=== PATIENT | female | born 1955 | race Caucasian/White ===

== ENCOUNTER 2016-06-23 07:07 | Emergency (ER) | payer BC ==
[~2016-06-23] VITALS: Ht 162.6 cm; Wt 75.1 kg
[~2016-06-23 07:07] MED LIST: ACET-1311 PO; ASPCH81X PO; BND25 PO; CLC100X PO; CLOP1TAB5 PO; EZET10TA63 PO; GLC500 PO; METF-382 PO; METO25TA56 PO; NTRGSL/4 PO; NTRSLP4 SL; OXYC-643 PO; PANT1TAB48 PO; SIMV40TA2 PO; ZOLP5TAB6 PO; [UNRECOGNIZED DRUG - OTHER] PO
[2016-06-23 07:12] VITALS: TEMP 37; Ht 162.6 cm; Wt 75.1 kg
[2016-06-23] MEDS ORDERED: METF-384 PO (07:27)
[2016-06-23] MEDS ORDERED: ASPIRIN 81 MG CHEW PO STA (07:27)
[2016-06-23] MEDS ORDERED: MAGN400T6 PO (07:42)
[2016-06-23] MEDS ORDERED: CALC500C3 PO (07:42)
[2016-06-23] MEDS ORDERED: ERGO500037 PO (07:42)
[2016-06-23] MEDS ORDERED: ATOR-24 PO (07:42)
[2016-06-23] MEDS ORDERED: ASPCH81X PO (07:43)
[2016-06-23] MEDS ORDERED: CLOP1TAB15 PO (07:43)
[2016-06-23 07:46] LABS: BASO % 0.5 %; BASO ABS # 0.04 K/uL (0-0.2); COMPLETE YES; EOS % 3.3 %; HEMATOCRIT 42.9 % (37-47); IG% 0.4 %; LYMPH % 32.1 %; LYMPH ABS # 2.45 K/uL (1.2-3.4); MEAN CELL VOLUME 86.7 fL (80-100); MEAN CORPUSCULAR HEMOGLOBIN 28.9 pg (25-34); MEAN CORPUSCULAR HGB CONC 33.3 g/dl (32-36); MEAN PLATELET VOLUME 9.4 fL (7.4-10.4); MONO % 6.5 %; NEUT % 57.2 %; PLATELET COUNT 402 K/uL (130-400); RED BLOOD COUNT 4.95 M/uL (4.2-5.4); WHITE BLOOD COUNT 7.64 K/uL (4.8-10.8)
[2016-06-23 07:52] VITALS: O2SAT 99
--- NOTE | 2016-06-23 07:53 | DIAGNOSTIC IMAGING REPORT ---
CHEST ONE VIEW PORTABLE CLINICAL HISTORY: Chest pain. COMPARISON STUDY: Chest radiograph July 04, 2016. FINDINGS: Lung volumes are normal. There is no consolidation. There is no evidence of pulmonary edema. Cardiomediastinal silhouette is stable. There is slight elevation of the left hemidiaphragm. IMPRESSION: 1. No acute findings. 2. Slight elevation of the left hemidiaphragm. Electronically signed by: Burak Porter M.D. 06/23/2016 7:52 AM Dictated Date/Time: 06/23/2016 7:52 AM
[2016-06-23 07:54] LABS: BUN/CREATININE RATIO 14.6 (10-20); CALCIUM 9.4 mg/dl (8.5-10.1); CREATININE 1.6 mg/dl (0.60-1.20); MAGNESIUM 1.8 mg/dl (1.8-2.4); POTASSIUM 3.6 mmol/L (3.5-5.1)
[2016-06-23 07:58] LABS: ALB/GLOB RATIO 1.1 (0.9-2); CKMB/CK RATIO 2.4 (0-3.0)
[2016-06-23 08:01] LABS: INR 0.9 (0.9-1.1); PROTHROMBIN TIME (PATIENT) 9.6 SECONDS (9.0-12.0)
[2016-06-23] MEDS ORDERED: SODIUM CHLORIDE 0.9% 1000ML 500 ML IV STA (09:43)
[2016-06-23] MEDS ORDERED: SODIUM CHLORIDE 0.9% 1000ML 1,000 ML IV STA (09:43)
--- NOTE | 2016-06-23 10:52 | EMERGENCY ROOM VISIT NOTE ---
History First contact with patient: 07:13 Chief Complaint: CARDIAC ASSESSMENT Stated Complaint: POSSIBLE HEART Nursing Triage Summary: pt to the ED with c/o epigastric/substernal chest pain that went to her back that started last night and it went into her right arm and shoulder. pt has hx of 2 stents and she took 1 nitro last night with no change in pain History of Present Illness Patient is a 61-year-old white female with past medical history significant for coronary artery disease status post [place] and PTCA with stenting 2, hypertension, dyslipidemia, diabetes and carotid artery stenosis who presents emergency department for evaluation of epigastric pain and back pain. Patient reports that her symptoms started yesterday with lower sternal pain that radiated through to her back. She states it was steady and constant for about 12 hours. At its worst she would've rated it a 9/10. She noted some associated belching. She states that burping helped with her discomfort. She also noticed some tightness in her neck. She monitored her heart rate and blood pressure at home and does report that her blood pressure was slightly elevated in the 150s over 110s and her heart rate was in the 90s. She did take 2 nitroglycerin last evening without change in her symptoms. She also tried chewing Tums. She states the pain did alleviate slightly last evening and she was able to go to bed. She slept through the night and felt fine when she woke up this morning. 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 She states that she broke out in a sweat and felt slightly like she was going to pass out. She again is complaining of some soreness in the top of her right shoulder and in her left scapular region. She denies any palpitations or indigestion. She was slightly nauseous yesterday. Bowel movements have been normal. She took her regular medications this morning. At the present time she is chest pain-free. Her energy trading analyst is Dr. Palacios. Review of Systems Review of systems as per HPI. All other systems reviewed were negative. 10 systems reviewed. Past Medical/Surgical History Medical Problems: (1) Carotid Artery Occlusion W O Cerebral Infarction (2) Chr Ischemic Hrt Dis Nec (3) Coronary Atherosclerosis Of [place] Coronary Vessel (4) Diab Hortensia Wo Compl, Type Ii Or Unspec Type, Not Uncntrld (5) Dysmetabolic Syndrome X (6) Hyperlipidemia Nec/Nos (7) Hypertension Nos (8) Old Myocardial Infarct (9) Vitamin D Deficiency, Unspecified Surgical Problems: (1) Fracture Acetabulum-Clos (2) Percutaneous Translum Coron Angioplasty Status Electronic medical records are reviewed and summarized as above/below. See Problem List. Social History Smoking Status: Current Some Day Smoker Drug Use: none Marital Status: Housing Status: lives alone Occupation Status: employed Current/Historical Medications Scheduled Aspirin (Aspirin Chewable), 81 MG PO DAILY Atorvastatin (Lipitor), 40 MG PO HS Calcium Carbonate (Tums), 500 MG PO UD Clopidogrel (Plavix), 75 MG PO DAILY Ergocalciferol (Vitamin D 74640 Unit), 50,000 UNIT PO WK Magnesium Oxide (Mag-Ox), 400 MG PO BID Metformin Hcl (Glucophage), 1,000 MG PO BID Nitroglycerin (Nitrostat), 0.4 MG PO UD Allergies Coded Allergies: Epinephrine (Verified Allergy, Severe, "PT FLATLINED"?, 06/23/16) Tetanus Toxoid (Unverified Allergy, Severe, SEVERE BURNING, 06/23/16) Fexofenadine (Verified Allergy, Unknown, 06/23/16) Influenza Vaccines (Verified Allergy, Unknown, `, 12/21/12) Meperidine (Verified Allergy, Unknown, 06/23/16) Physical Exam Vital Signs Date Time Temp Pulse Resp B/P Pulse Ox O2 Delivery O2 Flow Rate FiO2 06/23/16 11:01 62 18 140/89 96 06/23/16 10:54 59 06/23/16 09:49 56 18 134/77 97 06/23/16 08:17 61 18 134/74 100 06/23/16 07:52 99 06/23/16 07:22 72 06/23/16 07:12 37.0 69 18 132/87 97 Room Air Physical Exam CONSTITUTIONAL: Patient is a pleasant, well-appearing 61-year-old white female who is awake and alert and in no acute distress. EYES: Pupils equal, round, reactive to light and accommodation. EOMs intact without nystagmus. Sclera are anicteric. ENT: Tympanic membranes intact, with normal landmarks. External canals are clear. Oral and nasopharynx are clear. Mucous membranes are moist, no lesions , tongue and gums appear normal. NECK: No bruits auscultated. Supple without lymphadenopathy. No thyromegaly. No meningeal signs. Full active range of motion without discomfort. CARDIOVASCULAR: Regular rate and rhythm, with normal S1 and S2, no murmur or gallop or rub is heard. No carotid bruits auscultated. No JVD. Peripheral pulses easy to palpable. RESPIRATORY: Breath sounds equal and clear to auscultation without wheezes, rales, or rhonchi heard. Full and equal chest expansion without accessory muscle use or retractions. GI: Bowel sounds are present. Abdomen is soft, nontender, nondistended. No organomegaly. No pulsatile masses. No guarding or rebound. MUSCULOSKELETAL: Full range of motion of extremities x 4 with good strength. No cyanosis, edema, joint tenderness or swelling. No deformity. She does have some INTEGUMENTARY: No lesions or rash, normal skin turgor. NEUROLOGICAL: Alert, oriented, and cooperative. Cranial nerves, sensation and strength grossly intact. Pupils round, equal, and react to light, EOMs are full. LYMPH: No lymphadenopathy. Medical Decision & Procedures ER Provider Diagnostic Interpretation: CHEST ONE VIEW PORTABLE CLINICAL HISTORY: Chest pain. COMPARISON STUDY: Chest radiograph July 04, 2016. FINDINGS: Lung volumes are normal. There is no consolidation. There is no evidence of pulmonary edema. Cardiomediastinal silhouette is stable. There is slight elevation of the left hemidiaphragm. IMPRESSION: 1. No acute findings. 2. Slight elevation of the left hemidiaphragm. Laboratory Results 06/23/16 07:20 Red Blood Count 4.95, Mean Corpuscular Volume 86.7, Mean Corpuscular Hemoglobin 28.9, Mean Corpuscular Hemoglobin Concent 33.3, Mean Platelet Volume 9.4, Neutrophils (%) (Auto) 57.2, Lymphocytes (%) (Auto) 32.1, Monocytes (%) (Auto) 6.5, Eosinophils (%) (Auto) 3.3, Basophils (%) (Auto) 0.5, Neutrophils # (Auto) 4.37, Lymphocytes # (Auto) 2.45, Monocytes # (Auto) 0.50, Eosinophils # (Auto) 0.25, Basophils # (Auto) 0.04 06/23/16 07:20 Test 06/23/16 07:20 06/23/16 07:27 06/23/16 09:15 White Blood Count 7.64 K/uL (4.8-10.8) Red Blood Count 4.95 M/uL (4.2-5.4) Hemoglobin 14.3 g/dL (12.0-16.0) Hematocrit 42.9 % (37-47) Mean Corpuscular Volume 86.7 fL (80-100) Mean Corpuscular Hemoglobin 28.9 pg (25-34) Mean Corpuscular Hemoglobin Concent 33.3 g/dl (32-36) Platelet Count 402 K/uL (130-400) Mean Platelet Volume 9.4 fL (7.4-10.4) Neutrophils (%) (Auto) 57.2 % Lymphocytes (%) (Auto) 32.1 % Monocytes (%) (Auto) 6.5 % Eosinophils (%) (Auto) 3.3 % Basophils (%) (Auto) 0.5 % Neutrophils # (Auto) 4.37 K/uL (1.4-6.5) Lymphocytes # (Auto) 2.45 K/uL (1.2-3.4) Monocytes # (Auto) 0.50 K/uL (0.11-0.59) Eosinophils # (Auto) 0.25 K/uL (0-0.5) Basophils # (Auto) 0.04 K/uL (0-0.2) RDW Standard Deviation 40.4 fL (36.4-46.3) RDW Coefficient of Variation 12.7 % (11.5-14.5) Immature Granulocyte % (Auto) 0.4 % Immature Granulocyte # (Auto) 0.03 K/uL (0.00-0.02) Prothrombin Time 9.6 SECONDS (9.0-12.0) Prothromb Time International Ratio 0.9 (0.9-1.1) Activated Partial Thromboplast Time 26.8 SECONDS (21.0-31.0) Partial Thromboplastin Ratio 1.0 Anion Gap 9.0 mmol/L (3-11) Est Creatinine Clear Calc Drug Dose 36.7 ml/min Estimated GFR () 39.9 Estimated GFR (Non- 34.4 BUN/Creatinine Ratio 14.6 (10-20) Calcium Level 9.4 mg/dl (8.5-10.1) Magnesium Level 1.8 mg/dl (1.8-2.4) Total Bilirubin 1.0 mg/dl (0.2-1) Aspartate Amino Transf (AST/SGOT) 15 U/L (15-37) Alanine Aminotransferase (ALT/SGPT) 17 U/L (12-78) Alkaline Phosphatase 129 U/L (45-117) Total Creatine Kinase 114 U/L (26-192) Creatine Kinase MB 2.7 ng/ml (0.5-3.6) Total Protein 7.6 gm/dl (6.4-8.2) Albumin 3.9 gm/dl (3.4-5.0) Globulin 3.7 gm/dl (2.5-4.0) Albumin/Globulin Ratio 1.1 (0.9-2) Lipase 293 U/L (73-393) Creatine Kinase MB Ratio (0-3.0) Bedside Troponin I 0.000 ng/ml (0-0.045) Medications Administered Medications (Trade) Dose Ordered Sig/Sarah Route Start Time Stop Time Status Last Admin Dose Admin Aspirin 243 mg 243 mg NOW STAT PO 06/23/16 07:27 06/23/16 07:34 DC 06/23/16 07:49 243 MG Sodium Chloride 500 ml @ 999 mls/hr Q31M STAT IV 06/23/16 09:43 06/23/16 10:13 DC 06/23/16 09:48 999 MLS/HR Sodium Chloride (Nss 1000ml) 1,000 ml @ 200 mls/hr Q5H STAT IV 06/23/16 09:43 06/23/16 11:31 DC 06/23/16 09:49 200 MLS/HR ECG Indication: chest pain, back/shoulder pain Rate (beats per minute): 76 Rhythm: other Findings: PVC, no acute ischemic change, other (old infarct) ED Course The patient was seen and assessed as above. Old records are reviewed. History and presentation were reviewed with attending physician, and ED workup was agreed upon. Patient was also independently evaluated by Dr. Rhoades. IV lock was initiated. Patient was hydrated with normal saline solution. Laboratory studies were collected including CBC with differential, coags, CMP, lipase, cardiac enzymes. She was given aspirin 323 mg orally. Chest x-ray was obtained and was unremarkable. EKG did not demonstrate acute ischemic changes. Laboratory studies did not no leukocytosis, anemia, electrolyte or liver function abnormalities. Renal function is slightly elevated, BUN 23 and creatinine 1.6, which is chronic and appears stable for her. Her cardiac markers are negative 1, and 0 and 90 minute troponins are unchanged with symptoms greater than 12 hours. Lipase is not indicative of acute pancreatitis. All laboratory and diagnostic imaging studies were reviewed with attending physician. I did review the patient with Dr. Weaver who was personal lines account executive for [facility] Card[facility]. He felt given the nature of her symptoms and negative ED workup, she could be evaluated in a timely manner in the outpatient clinic for further cardiac testing. This was discussed with the patient and she was in agreement. Certainly she is well versed on the signs and symptoms for which she should return to the emergency department immediately and these were reviewed with her. The patient otherwise was hemodynamically stable and pain-free while in the emergency department awaiting the results of her workup. She was discharged home in good condition and was pain-free at that time. Differential diagnosis includes acute myocardial infarction, acute coronary syndrome, myocarditis, pericarditis, pericardial effusions /tamponade, esophageal perforation, pulmonary embolism, pneumonia, pneumothorax, cardiomyopathy, congestive heart failure, anemia , COPD/asthma exacerbation, musculoskeletal, anxiety, costochondritis, pancreatitis, gastritis, esophagitis , GERD, acute cholecystitis, cholelithiasis, biliary colic, ascending cholangitis, among others.. Medical Decision See ED course. Impression Primary Impression: Midsternal chest pain Departure Information Referrals Ana Norton DO (PCP) Patient Instructions [facility] Additional Instructions Acetaminophen(Tylenol) may be used for fever or pain. Use 1000mg every six hours as needed. Avoid using more than 3000mg in a 24 hour period. Rest and drink plenty of fluids as tolerated. Continue current medications. Avoid strenuous activities and anything that worsens your pain. Resume normal activities once your symptoms resolve. Return to the ER immediately for worsening or persistent chest pain, abdominal pain, vomiting, fevers, chest pains, difficulty breathing, worsening of your condition, or as needed. Follow up with your energy trading analyst as scheduled for a recheck of your current condition.
--- NOTE | 2016-06-23 10:55 | EMERGENCY ROOM VISIT NOTE ---
ED Visit Note First contact with patient: 07:13 The patient was seen and examined with Rosmery Rodriguez PA-C. I agree with the history, physical and findings. Please see the note for disposition and details.
[2016-06-23 11:01] VITALS: BP 140/89; PULSE 62; O2SAT 96
== END 2016-06-23 11:02 | disposition home or self-care (01) ==
LOC: C.EDB 07:08
DX: R07.89 Other chest pain (principal); M54.9 Dorsalgia, unspecified; I25.10 Atherosclerotic heart disease of native coronary artery without angina pectoris; I10 Essential (primary) hypertension; E78.5 Hyperlipidemia, unspecified; E11.9 Type 2 diabetes mellitus without complications; E88.81 Metabolic syndrome and other insulin resistance; E55.9 Vitamin D deficiency, unspecified; F17.200 Nicotine dependence, unspecified, uncomplicated; Z95.5 Presence of coronary angioplasty implant and graft; Z79.82 Long term (current) use of aspirin

== ENCOUNTER 2025-01-20 15:32 | Inpatient (IN) ==
--- NOTE | 2025-01-20 16:05 | Emergency Department Note ---
Impression & Plan Generalized weakness, COVID-19 virus infection, Fatigue, Elevated troponin I level, Hypoxia ED Provider Note NAME: ALEX GUPTA AGE: 69 SEX: F : 1955 ARRIVES VIA: Walk-In INFORMANT: Patient, ED PROVIDER(S): Tobias Myrick DO CHIEF COMPLAINT: Strokelike symptoms HPI: The patient is a 69-year-old female who presented to the emergency department for strokelike symptoms. She has a history of a MA in 2020. She also has a history of a stroke. She does use tobacco products. She does take Plavix. The patient states that she has been compliant with her outpatient medications. Her last time that her family saw her completely normal was yesterday. They all had dinner yesterday evening. The patient works still at a local hotel. Apparently she was there today and doing her normal work. She seemed to be "off" according to some of her coworkers. Her daughter states that she fell asleep in her car. She states that she did very fatigued and weak. She complains of pain between her shoulder blades that goes into her neck. She states that she has had some difficulty word finding as well. She denies having any unilateral weakness. She denies having any nausea or vomiting. She thought she might be dehydrated so she is drinking more water than usual yesterday. She denies having any lower extremity swelling or pain. ROS: See above HPI for pertinent positives & negatives. A total of 10 systems reviewed and were otherwise negative. PAST MEDICAL HISTORY: See Below PAST SURGICAL HISTORY: See Below FAMILY HISTORY: See Below SOCIAL HISTORY: See Below HOME MEDICATIONS: See Below ALLERGIES: See Below VITALS: See Below PHYSICAL EXAMINATION: GENERAL: Patient is awake alert in no acute distress patient is resting comfortably and showing no signs of anxiety EYES: The conjunctivae are clear. The pupils are round and reactive. EARS, NOSE, MOUTH AND THROAT: The nose is without any evidence of any deformity. NECK: The neck is nontender and supple. RESPIRATORY: Scattered rhonchi was noted throughout. There is no tachypnea or conversational dyspnea. CARDIOVASCULAR: Regular rate and rhythm noted there no murmurs rubs or gallops normal S1 normal S2. GASTROINTESTINAL: The abdomen is soft. Abdomen is nontender. PELVIS: The Pelvis is stable. No tenderness to palpation is noted. BACK: No midline tenderness or or step-off noted range of motion in flexion extension as well as rotation no signs of muscle spasm noted MUSCULOSKELETAL/EXTREMITIES: There is no evidence of gross deformity full range of motion is noted in the hips and shoulders. SKIN: There is no obvious evidence of any rash. There are no petechiae, pallor or cyanosis noted. Pulses are symmetric in both wrist. NEUROLOGIC: Patient is awake alert and oriented x3. Speech was clear. There is no facial droop. The patient is able to hold each leg off the bed for greater than 5 seconds. MEDICAL DECISION MAKING: The patient is a 69-year-old female who presented to the emergency department with her family. They were concerned that this could represent strokelike symptoms. The patient was not acting herself today. She was overly tired. She fell asleep at 1 point in her car and seemed to be confused at times to her family. This is unlike the patient so they brought her to the emergency department for further evaluation. She was not made a stroke alert because of the last known well being yesterday. The patient also did not have any obvious focal neurologic deficits on physical exam. The patient also complained of back pain. There was some concern that this could represent stroke versus some sort of cardiac equivalent. Given the patient's complaints further laboratory and radiographic studies were obtained. Ultimately patient was found to have a positive COVID test. She also was found to have a slight elevation in troponin. Given these findings I did discuss her condition with the on-call [facility] hospitalist. They have agreed to evaluate the patient in the emergency department for further management and disposition. Triage Nursing notes reviewed. Prior medical records reviewed Vital Signs: reviewed and remarkable for no significant abnormalities Differential diagnosis: Infection, dehydration, metabolic abnormality, hypo/hyperglycemia, electrolyte disturbance, anemia, hypoxia, cardiac sources, intracerebral event, toxicologic, neurologic, as well as other pathologies. ER treatment provided: See below Diagnostics interpreted by me: ECG: EKG was obtained in the emergency department. My interpretation is sinus bradycardia 59 bpm. There were PACs noted. Nonspecific ST and T wave abnormalities were noted. This was compared to a tracing from 2020. The previous tracing does show extensive ST depression with T wave inversions. This was the time the patient presented for cardiac ischemia and acute coronary syndrome. Likely today's tracing reveals evolution of those changes. Cardiac Monitoring: An order was placed for continuous cardiac monitoring. The monitor shows a rate of 62 bpm with sinus rhythm. Laboratory studies: As stated above and show below. Imaging studies: See below. Radiographic imaging was reviewed by myself Consultation(s): I discussed this case with Dr. Jane who is on-call for the [facility] hospitalist group. Past Med/Surg History Problem List (Updated 01/20/25 @ 22:54 by Tobias Myrick DO) Hypoxia (Acute) Elevated troponin I level (Acute) Fatigue (Acute) COVID-19 virus infection (Acute) Generalized weakness (Acute) Eustachian tube obstruction Pressure sensation in both ears Sensorineural hearing loss (SNHL) of both ears Positive BLANCA (antinuclear antibody) Proteinuria Acute kidney injury CKD (chronic kidney disease) stage 4, GFR 15-29 ml/min Fracture of fifth metacarpal bone of right hand (11/03/23) From a fall-saw orthopedics Fracture of fourth metacarpal bone of right hand (11/03/23) From a fall-saw orthopedics Fracture of third metacarpal bone of right hand (11/03/23) From a fall-saw orthopedics Right hand fracture (11/03/23) From a fall-saw orthopedics Dysmetabolic syndrome X Xerosis of skin Vitamin D deficiency, unspecified Ptosis of eyelid Prediabetes Postmenopausal disorder Old myocardial infarct Left carotid bruit Insomnia Hypomagnesemia Hypertension Hypercholesterolemia Generalized osteoarthritis of multiple sites Former smoker Arteriosclerosis of coronary artery Arteriosclerosis of carotid artery Medical History History of disorder of carotid artery Occlusion resulting in stroke History of hip fracture (~12/20/12) right acetabulum History of stroke due to occlusion or stenosis of lt. middle cerebral artery Retinal hemorrhage, left eye Presence of stent in artery Surgical History S/P carotid endarterectomy History of repair of rotator cuff Family History Father Lung cancer Mother Ovarian cancer Grandmother Myocardial infarction Heart disease Denies family history of Prostate cancer Breast cancer Colorectal cancer Social History Smoking Status: Current every day smoker Tobacco Type: Cigarettes Age Started Using Tobacco: 12; Age Quit Using Tobacco: 50; packs per day: 1; Cigarettes Per Day: 20; Second Hand Exposure: Yes; Do You Dip or Chew Tobacco: No; Hx Alcohol Use: Yes Alcohol type: wine Alcohol Intake Frequency: Monthly or Less Hx Substance Use: No Preferred Language: Serbian Communication Ability: Effective Visual Impairment: No Limitations Hearing Ability: Normal Cook Ship Required: No marital status: Current Living Situation: Alone current occupational status: employed and retired current occupation: [employer] How many Children do You have: 3 Feels Safe at Home: Yes Childhood Exposure to Second-Hand Smoke: Yes Diet: regular caffeine: Yes during the past year weight has: remained stable Dental Care, Regularly: No Physical Activity Frequency: Daily Seatbelt Use: always Sunscreen Use: No Assistive Devices: Glasses Allergies Allergies Allergy/AdvReac Type Severity Reaction Status Date / Time epinephrine Allergy Severe Anaphylaxis Verified 11/21/24 14:04 tetanus toxoid, adsorbed Allergy Severe Rash Verified 11/21/24 14:04 fexofenadine Allergy Unknown Unknown Verified 11/21/24 14:04 Influenza Virus Vaccines Allergy Unknown Unknown Verified 11/21/24 14:04 doxycycline AdvReac Severe RASH Verified 11/21/24 14:04 hydralazine AdvReac Severe Patients Verified 11/21/24 14:04 pulse dropped to 30 meperidine AdvReac Intermediate Bradycardia Verified 11/21/24 14:04 cephalexin [From Keflex] AdvReac Unverified 11/21/24 14:04 Home Meds Home Medications Medication Instructions Recorded Confirmed aspirin 81 mg tablet,delayed 81 mg PO DAILY 05/22/20 11/21/24 release Previous Rx's Medication Instructions Recorded benzonatate 200 mg capsule 200 mg PO TID PRN cough #30 caps 07/23/21 inhalational spacing device #1 ea 07/31/21 albuterol sulfate 90 mcg/actuation 2 puff inhalation .COMPLEX PRN 09/03/24 aerosol inhaler shortness of breath or wheezing #8.5 grams clobetasol 0.05 % topical cream 1 applic topical BID PRN rash #60 09/03/24 grams clopidogrel 75 mg tablet 75 mg PO DAILY #90 tabs 09/03/24 losartan 100 mg tablet 100 mg PO DAILY #90 tabs 09/03/24 metoprolol tartrate 25 mg tablet 12.5 mg (1/2 x 25 mg) PO BID #90 09/03/24 tabs nitroglycerin 0.4 mg sublingual 0.4 mg sublingual .COMPLEX PRN 09/03/24 tablet chest pain #30 tabs rosuvastatin 20 mg tablet 20 mg PO DAILY #90 tabs 09/03/24 empagliflozin 10 mg tablet 10 mg PO DAILY #30 tabs 11/21/24 (Jardiance) Results & Data (ED) Vital Signs Vital Signs - 24 hr 01/20/25 15:38 01/20/25 15:55 01/20/25 17:00 Temperature 36.7 C Temperature Source Temporal Artery Scan Pulse Rate 65 58 L Pulse Rate [Apical] 58 L Respiratory Rate 18 16 Respiratory Effort / Characteristics Non-Labored Spontaneous Respiratory Depth Normal Blood Pressure 140/62 Blood Pressure [Right Arm] 159/75 H Blood Pressure Mean 88 Blood Pressure Mean [Right Arm] 103 Pulse Oximetry 98 92 Oxygen Delivery Method Room Air Oxygen Flow Rate Sepsis Recent Fever Within 48 Hours No Sepsis New/Unexplained Change in Mental Status No Sepsis Action Taken by Nursing No Action Required 01/20/25 17:33 01/20/25 19:00 01/20/25 20:38 Temperature Temperature Source Pulse Rate 63 Pulse Rate [Apical] 65 64 Respiratory Rate 16 16 Respiratory Effort / Characteristics Respiratory Depth Blood Pressure Blood Pressure [Right Arm] 170/80 H 163/87 H Blood Pressure Mean Blood Pressure Mean [Right Arm] 110 112 Pulse Oximetry 95 93 Oxygen Delivery Method Room Air Room Air Oxygen Flow Rate Sepsis Recent Fever Within 48 Hours Sepsis New/Unexplained Change in Mental Status Sepsis Action Taken by Nursing 01/20/25 21:00 Temperature Temperature Source Pulse Rate Pulse Rate [Apical] 62 Respiratory Rate 16 Respiratory Effort / Characteristics Respiratory Depth Blood Pressure Blood Pressure [Right Arm] 170/83 H Blood Pressure Mean Blood Pressure Mean [Right Arm] 112 Pulse Oximetry 96 Oxygen Delivery Method Nasal Cannula Oxygen Flow Rate 2 Sepsis Recent Fever Within 48 Hours Sepsis New/Unexplained Change in Mental Status Sepsis Action Taken by [facility] Medications Current Medication List: was personally reviewed by me Laboratory Data Attestation: I reviewed the patient's lab results. 01/20/25 16:07 01/20/25 16:07 Lab Results 01/20/25 01/20/25 01/20/25 Range/Units 15:53 16:07 16:10 WBC 4.54 L (4.8-10.8) K/ul RBC 3.90 L (4.20-5.40) M/uL Hgb 11.1 L (12.0-16.0) g/dl Hct 35.2 L (37.0-47.0) % MCV 90.3 (80.0-100.0) fL MCH 28.5 (25.0-34.0) pg MCHC 31.5 L (32.0-36.0) g/dL RDW Std Deviation 44.0 (36.4-46.3) fL RDW Coeff of Yoselin 13.3 (11.5-14.5) % Plt Count 221 (130-400) K/uL MPV 9.4 (9.4-12.4) fL Immature Gran % (Auto) 0.2 % Neut % (Auto) 68.5 % Lymph % (Auto) 14.5 % [place] % (Auto) 16.1 % Eos % (Auto) 0.0 % Baso % (Auto) 0.7 % Neut # (Auto) 3.11 (1.40-6.50) K/uL Lymph # (Auto) 0.66 L (1.20-3.40) K/uL [place] # (Auto) 0.73 H (0.11-0.59) K/uL Eos # (Auto) 0.00 (0.00-0.50) K/uL Baso # (Auto) 0.03 (0.00-0.20) K/uL Immature Gran # (Auto) 0.01 (0.01-0.20) K/uL PT 10.8 (9.0-12.0) Seconds INR 1.0 (0.9-1.1) APTT 28 (21-31) Seconds PTT Ratio 1.0 Sodium 138 (136-145) mmol/L Potassium 4.5 (3.5-5.1) mmol/L Chloride 107 (98-107) mmol/L Carbon Dioxide 24 (21-32) mmol/L Anion Gap 7 (3-11) BUN 22 (6-23) mg/dl Creatinine 2.04 H (0.6-1.2) mg/dl Est Cr Clr Drug Dosing 27.1 ml/min eGFR 25.92 BUN/Creatinine Ratio 10.8 (10-20) Glucose 90 (70-99(Fasting)) mg/dl POC Glucose 102 H (70-99) mg/dl Calcium 8.9 (8.6-10.3) mg/dl Magnesium 1.9 (1.7-2.4) mg/dl Total Bilirubin 1.2 H (0.2-1.0) mg/dl AST 23 (13-39) U/L ALT 16 (7-52) U/L Alkaline Phosphatase 83 (34-104) U/L Troponin I High Sens 16.9 H (0-14) pg/ml Total Protein 6.2 (6.0-8.3) gm/dl Albumin 3.7 (3.4-5.0) gm/dl Globulin 2.5 (2.5-4.0) gm/dl Albumin/Globulin Ratio 1.5 (0.9-2) SARS-CoV-2 (PCR) POSITIVE A (Negative) Influenza Type A (PCR) Negative (Neg) Influenza Type B (PCR) Negative (Neg) RSV (RT-PCR) Negative (Neg) Administered Medications Discontinued Medications Sodium Chloride (Nss) 1,000 mls @ 999 mls/hr IV .Q1H1M ONE Stop: 01/20/25 17:48 Last Infusion: 01/20/25 19:29 Dose: Infused Documented By: Admin: 01/20/25 17:04 Dose: 999 mls/hr Documented By: KVNG Ioversol (Optiray 320 125ml) 115 ml IV ONCE ONE Stop: 01/20/25 19:19 Last Admin: 01/20/25 19:19 Dose: 115 ml Documented By: DARLYN Imaging Data Attestation: I personally reviewed and interpreted this imaging study as follows: My Impression: CT of the brain was obtained in the emergency department. My interpretation is no intracranial hemorrhage or mass effect, final report below. Radiologist's Impression: Chest CTA 01/20/25 15:54 CT pulmonary angiogram with IV contrast History: Chest pain COMPARISON: None TECHNIQUE: CT angiography of the chest was performed without IV contrast followed by IV contrast, including 3D post processing CTA image reconstruction. Dose reduction techniques were achieved by using automatic exposure control and/or adjustment of mA and/or kV according to patient size and/or use of iterative reconstruction technique. FINDINGS: Diagnostic quality: Adequate There is no evidence for pulmonary embolism. No aortic dissection or aneurysm. The heart is not enlarged. Heavy coronary calcification. There is no pericardial effusion. There are no abnormally enlarged hilar or mediastinal lymph nodes. The central tracheobronchial tree is clear. The lungs are clear. There is no pleural effusion. Limited visualized upper abdomen. No destructive osseous changes are seen. IMPRESSION: Normal CTA of the chest. No aortic aneurysm or dissection. No evidence for pulmonary embolism. Electronically signed by Geovany Leroy 01-20-2025 7:[address] 01/20/25 15:54 CT head without contrast History: Numbness Comparison: None Technique: Using multidetector thin collimation helical acquisition technique, axial, coronal and sagittal CT images from the skull base to the vertex were obtained without intravenous contrast. Dose reduction techniques were achieved by using automatic exposure control and/or adjustment of mA and/or kV according to patient size and/or use of iterative reconstruction technique. Findings: No intracranial hemorrhage, mass-effect, or midline shift. The ventricles are proportionate to the cerebral sulci. The varghese to white matter differentiation of the cerebral hemispheres is preserved. The basal cisterns are patent. Chronic lacunar infarct in the left richards radiata. The visualized paranasal sinuses are clear. Mastoid air cells are clear. Impression: No acute intracranial pathology. Electronically signed by Geovany Leroy 01-20-2025 7:59 PM Head CTA 01/20/25 15:[address] without contrast CT angiogram of the neck CT angiogram of the brain with contrast Provided History: Neuro deficit Comparison: None Technique: HEAD CT: Using multidetector thin collimation helical acquisition technique, axial, coronal and sagittal CT images from the skull base to the vertex were obtained without intravenous contrast. HEAD and NECK CTA: During rapid bolus intravenous injection of nonionic contrast material, axial images were obtained using thin collimation multidetector helical technique from the base of the neck through the of vertex of the head. This CT angiogram data was reconstructed at thin intervals with mild overlap. 3D reconstructions were obtained. The axial source images, multiplanar reformations, 3D reconstructions in both maximum intensity projection display and volume rendered models were reviewed. Dose reduction techniques were achieved by using automatic exposure control and/or adjustment of mA and/or kV according to patient size and/or use of iterative reconstruction technique. Findings: Head CT: There is no intracranial hemorrhage, mass effect, or midline shift. Varghese/white matter differentiation in both cerebral hemispheres is preserved. Ventricles are proportionate to the cerebral sulci. Small chronic lacunar infarct in the left richards radiata. Head CTA demonstrates no aneurysm or stenosis of the major intracranial arteries. Neck CTA demonstrates no stenosis of the major cervical arteries. A right ICA stent appears patent. The origins of the great vessels from the aortic arch are patent. No mass is noted within the visualized portions of the cervical soft tissues or lung apices. Impression: 1. Head CTA demonstrates no aneurysm or stenosis of the major intracranial arteries, 2. Neck CTA demonstrates no stenosis of the major cervical arteries. Patent right ICA stent. 3. No intracranial hemorrhage on the noncontrast head CT. Electronically signed by Geovany Leroy 01-20-2025 7:53 PM Neck CTA 01/20/25 15:[address] without contrast CT angiogram of the neck CT angiogram of the brain with contrast Provided History: Neuro deficit Comparison: None Technique: HEAD CT: Using multidetector thin collimation helical acquisition technique, axial, coronal and sagittal CT images from the skull base to the vertex were obtained without intravenous contrast. HEAD and NECK CTA: During rapid bolus intravenous injection of nonionic contrast material, axial images were obtained using thin collimation multidetector helical technique from the base of the neck through the of vertex of the head. This CT angiogram data was reconstructed at thin intervals with mild overlap. 3D reconstructions were obtained. The axial source images, multiplanar reformations, 3D reconstructions in both maximum intensity projection display and volume rendered models were reviewed. Dose reduction techniques were achieved by using automatic exposure control and/or adjustment of mA and/or kV according to patient size and/or use of iterative reconstruction technique. Findings: Head CT: There is no intracranial hemorrhage, mass effect, or midline shift. Varghese/white matter differentiation in both cerebral hemispheres is preserved. Ventricles are proportionate to the cerebral sulci. Small chronic lacunar infarct in the left richards radiata. Head CTA demonstrates no aneurysm or stenosis of the major intracranial arteries. Neck CTA demonstrates no stenosis of the major cervical arteries. A right ICA stent appears patent. The origins of the great vessels from the aortic arch are patent. No mass is noted within the visualized portions of the cervical soft tissues or lung apices. Impression: 1. Head CTA demonstrates no aneurysm or stenosis of the major intracranial arteries, 2. Neck CTA demonstrates no stenosis of the major cervical arteries. Patent right ICA stent. 3. No intracranial hemorrhage on the noncontrast head CT. Electronically signed by Geovany Leroy 01-20-2025 7:53 PM Discharge Plan Visit Data Chief Complaint: TIA Symptoms Stated Complaint: STROKE HEART PROBLEMS ED Provider: Tobias Myrick Discharge Problem: Generalized weakness, COVID-19 virus infection, Fatigue, Elevated troponin I level, Hypoxia Patient Disposition: Being Evaluated by Hospitalist Condition: Fair Forms Stand Alone Forms: [facility] [employer] Prescriptions Prescriptions: No Action benzonatate 200 mg capsule 200 mg PO TID PRN (Reason: cough) Qty: 30 1RF (DME) inhalational spacing device Spacer See Rx Instructions .ROUTE .MEDSUPPLY Qty: 1 0RF Rx Instructions: As directed albuterol sulfate 90 mcg/actuation HFA aerosol inhaler 2 puff inhalation .COMPLEX PRN (Reason: shortness of breath or wheezing) Qty: 8.5 3RF Rx Instructions: 2 puff inhalation q4-6 hrs PRN; clobetasol 0.05 % cream 1 applic topical BID PRN (Reason: rash) Qty: 60 0RF clopidogrel 75 mg tablet 75 mg PO DAILY Qty: 90 3RF Rx Instructions: Take 1 tablet by mouth once daily losartan 100 mg tablet 100 mg PO DAILY Qty: 90 3RF metoprolol tartrate 25 mg tablet 12.5 mg PO BID Qty: 90 3RF Rx Instructions: TAKE 1/2 (ONE-HALF) TABLET BY MOUTH TWICE DAILY nitroglycerin 0.4 mg tablet, sublingual 0.4 mg SL .COMPLEX PRN (Reason: chest pain) Qty: 30 5RF Rx Instructions: 0.4 mg SL Q5M FOR UP TO 3 DOSES PRN; rosuvastatin 20 mg tablet 20 mg PO DAILY Qty: 90 3RF Jardiance 10 mg tablet 10 mg PO DAILY Qty: 30 2RF aspirin 81 mg Tablet,Delayed Release (Dr/Ec) 81 mg PO DAILY Referrals Referrals: Ambreen Lira MD [Primary Care Provider] -
[2025-01-20 16:27] LABS: Hematocrit (blood only) 35.2 % (37.0-47.0); Hemoglobin 11.1 g/dl (12.0-16.0); Immature Granulocytes # (auto) 0.01 K/uL (0.01-0.20); Immature Granulocytes % (auto) 0.2 %; Mean Corpuscular Hemoglobin 28.5 pg (25.0-34.0); Mean Corpuscular Volume 90.3 fL (80.0-100.0); Platelet Count 221 K/uL (130-400); RDW Standard Deviation 44.0 fL (36.4-46.3); Red Blood Count 3.90 M/uL (4.20-5.40); White Blood Count 4.54 K/ul (4.8-10.8)
[2025-01-20 16:46] LABS: Alanine Aminotransferase 16.0 U/L (7-52); Albumin Globulin Ratio 1.5 (0.9-2); Albumin Level 3.7 gm/dl (3.4-5.0); Alkaline Phosphatase 83.0 U/L (34-104); Anion Gap 7.0 (3-11); Bilirubin,Total 1.2 mg/dl (0.2-1.0); Blood Urea Nitrogen 22.0 mg/dl (6-23); Calcium 8.9 mg/dl (8.6-10.3); Carbon Dioxide 24.0 mmol/L (21-32); Chloride 107.0 mmol/L (98-107); Creatinine Clr Calc Pharmacy 27.1 ml/min; Globulin 2.5 gm/dl (2.5-4.0); Glucose 90.0 mg/dl (70-99(Fasting)); Magnesium 1.9 mg/dl (1.7-2.4); Potassium 4.5 mmol/L (3.5-5.1); Sodium 138.0 mmol/L (136-145); Total Protein 6.2 gm/dl (6.0-8.3)
[2025-01-20 17:00] LABS: INR 1.0 (0.9-1.1); Partial Thromboplastin Time 28 Seconds (21-31); Prothrombin Time 10.8 Seconds (9.0-12.0)
[2025-01-20] MEDS: SODIUM CHLORIDE 0.9% 1,000 ML IV ONE (17:04)
[2025-01-20 17:06] LABS: Influenza A virus by PCR Negative (Neg); Influenza B virus by PCR Negative (Neg); SARS CoV2 RNA(COVID-19) Ceph POSITIVE (Negative)
[2025-01-20] MEDS: OPTIRAY 320 125ml IV ONE (19:19)
--- NOTE | 2025-01-20 19:54 | CT Scan Report ---
Head CT without contrast CT angiogram of the neck CT angiogram of the brain with contrast Provided History: Neuro deficit Comparison: None Technique: HEAD CT: Using multidetector thin collimation helical acquisition technique, axial, coronal and sagittal CT images from the skull base to the vertex were obtained without intravenous contrast. HEAD and NECK CTA: During rapid bolus intravenous injection of nonionic contrast material, axial images were obtained using thin collimation multidetector helical technique from the base of the neck through the of vertex of the head. This CT angiogram data was reconstructed at thin intervals with mild overlap. 3D reconstructions were obtained. The axial source images, multiplanar reformations, 3D reconstructions in both maximum intensity projection display and volume rendered models were reviewed. Dose reduction techniques were achieved by using automatic exposure control and/or adjustment of mA and/or kV according to patient size and/or use of iterative reconstruction technique. Findings: Head CT: There is no intracranial hemorrhage, mass effect, or midline shift. Varghese/white matter differentiation in both cerebral hemispheres is preserved. Ventricles are proportionate to the cerebral sulci. Small chronic lacunar infarct in the left richards radiata. Head CTA demonstrates no aneurysm or stenosis of the major intracranial arteries. Neck CTA demonstrates no stenosis of the major cervical arteries. A right ICA stent appears patent. The origins of the great vessels from the aortic arch are patent. No mass is noted within the visualized portions of the cervical soft tissues or lung apices. Impression: 1. Head CTA demonstrates no aneurysm or stenosis of the major intracranial arteries, 2. Neck CTA demonstrates no stenosis of the major cervical arteries. Patent right ICA stent. 3. No intracranial hemorrhage on the noncontrast head CT. Electronically signed by Geovany Leroy 01-20-2025 7:53 PM
--- NOTE | 2025-01-20 19:54 | CT Scan Report ---
CT pulmonary angiogram with IV contrast History: Chest pain COMPARISON: None TECHNIQUE: CT angiography of the chest was performed without IV contrast followed by IV contrast, including 3D post processing CTA image reconstruction. Dose reduction techniques were achieved by using automatic exposure control and/or adjustment of mA and/or kV according to patient size and/or use of iterative reconstruction technique. FINDINGS: Diagnostic quality: Adequate There is no evidence for pulmonary embolism. No aortic dissection or aneurysm. The heart is not enlarged. Heavy coronary calcification. There is no pericardial effusion. There are no abnormally enlarged hilar or mediastinal lymph nodes. The central tracheobronchial tree is clear. The lungs are clear. There is no pleural effusion. Limited visualized upper abdomen. No destructive osseous changes are seen. IMPRESSION: Normal CTA of the chest. No aortic aneurysm or dissection. No evidence for pulmonary embolism. Electronically signed by Geovany Leroy 01-20-2025 7:53 PM
--- NOTE | 2025-01-20 20:00 | CT Scan Report ---
CT head without contrast History: Numbness Comparison: None Technique: Using multidetector thin collimation helical acquisition technique, axial, coronal and sagittal CT images from the skull base to the vertex were obtained without intravenous contrast. Dose reduction techniques were achieved by using automatic exposure control and/or adjustment of mA and/or kV according to patient size and/or use of iterative reconstruction technique. Findings: No intracranial hemorrhage, mass-effect, or midline shift. The ventricles are proportionate to the cerebral sulci. The brownlee to white matter differentiation of the cerebral hemispheres is preserved. The basal cisterns are patent. Chronic lacunar infarct in the left richards radiata. The visualized paranasal sinuses are clear. Mastoid air cells are clear. Impression: No acute intracranial pathology. Electronically signed by Geovany Leroy 01-20-2025 7:59 PM
[2025-01-20] MEDS ORDERED: ALBUT/IPRATROP 3MG/0.5MG NEB 3 ML VIAL NEB PRN (22:03)
--- NOTE | 2025-01-20 22:08 | History & Physical Report ---
Date of Service January 20, 2025 Assessment & Plan (1) COVID-19 virus infection: (2) Fatigue: (3) Generalized weakness: (4) Myalgia: Plan The patient is a 69-year-old female with past medical history including eustachian tube dysfunction, SNHL bilaterally, positive BLANCA, CKD stage IV, multiple fractures of metacarpals on right hand 11-03-2023, dysmetabolic syndrome X, vitamin D deficiency, postmenopausal disorder, history of HI, hypertension, hypercholesterolemia, generalized osteoarthritis multiple sites, former smoker, and history of YESSY stent. She presented to the emergency department due to symptoms of progressive fatigue, generalized weakness, dyspnea on exertion, cough, and multiple muscle and joint pains. There was report of transient slurred speech, which had resolved relatively quickly. 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 She denies any recent travels. Workup in the emergency department included abnormal labs: Troponin 16.9, creatinine 2.04. Respiratory bio fire test was negative for flu and RSV, positive for COVID. CT scan of head was negative, CT angiography of head was negative, CTA of neck showed a patent YESSY stent, CT angiography chest was negative for PE. From the ED the patient received normal saline 1 L fluid bolus, and is referred for evaluation for admission to the [facility]. COVID-19 virus infection- Patient initially had symptoms that were thought to possibly be related to TIA, however, they cannot be explained by his viral infection. By time my examination, patient had some mild generalized weakness, muscle aches and bone aches. She had no general or focal neurologic deficits. CT scan head was negative, CTA head was negative, CTA neck showed a patent YESSY stent, CT angiography chest with PE protocol was negative. Status post normal saline 1 L fluid bolus from the ED Start dexamethasone 10 mg IV now, then 6 mg IV every morning Remdesivir IV per protocol COVID precautions Respiratory bio fire test was negative for flu and RSV Acetaminophen 650 mg by mouth every 6 hours as needed for mild pain or fever Zofran 4 mg IV every 6 hours as needed DuoNebs every 2 hours as needed NSS at 80 mL/h x 1 L Elevated troponin/history of HI/hypertension/history of stroke/patent YESSY stent- The patient will be admitted to telemetry for serial cardiac enzymes, serial EKG's, cardiac rhythm monitoring and a 2-D echocardiogram with Dopplers. CBC with differential, basic metabolic panel, magnesium level, troponin, lipid panel, and hemoglobin A1c in the a.m.- Continue aspirin, Plavix, losartan, metoprolol tartrate Hyperlipidemia- Continue rosuvastatin Check a fasting lipid panel in the a.m. History of Present Illness Chief Complaint: The patient reports that since last evening 01/19, through the day of 01/20, the patient has been having symptoms of generalized weakness, slurred speech, unsteady gait, worsening fatigue, dyspnea on exertion and cough. She reports pain between both shoulder blades is chronic but worse today. She has a known history of YESSY stent with stroke 2021, and history of HI. Last known well time, when patient was seen by family, was at 6:00 PM on 01/19. She works in a hotel, and reports that she did get exposed to significant smell of weed in rooms, but is unaware of any direct sick exposures. She did no recent travels. Primary Care Provider: Ambreen Lira MD The patient is a 69-year-old female with past medical history including eustachian tube dysfunction, SNHL bilaterally, positive BLANCA, CKD stage IV, multiple fractures of metacarpals on right hand 11-03-2023, dysmetabolic syndrome X, vitamin D deficiency, postmenopausal disorder, history of HI, hypertension, hypercholesterolemia, generalized osteoarthritis multiple sites, former smoker, and history of YESSY stent. She presented to the emergency department due to symptoms of progressive fatigue, generalized weakness, dyspnea on exertion, cough, and multiple muscle and joint pains. There was report of transient slurred speech, which had resolved relatively quickly. 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 She denies any recent travels. Workup in the emergency department included abnormal labs: Troponin 16.9, creatinine 2.04. Respiratory bio fire test was negative for flu and RSV, positive for COVID. CT scan of head was negative, CT angiography of head was negative, CTA of neck showed a patent YESSY stent, CT angiography chest was negative for PE. From the ED the patient received normal saline 1 L fluid bolus, and is referred for evaluation for admission to the [facility]. Allergies Allergy/AdvReac Type Severity Reaction Status Date / Time epinephrine Allergy Severe Anaphylaxis Verified 11/21/24 14:04 tetanus toxoid, adsorbed Allergy Severe Rash Verified 11/21/24 14:04 fexofenadine Allergy Unknown Unknown Verified 11/21/24 14:04 Influenza Virus Vaccines Allergy Unknown Unknown Verified 11/21/24 14:04 doxycycline AdvReac Severe RASH Verified 11/21/24 14:04 hydralazine AdvReac Severe Patients Verified 11/21/24 14:04 pulse dropped to 30 meperidine AdvReac Intermediate Bradycardia Verified 11/21/24 14:04 cephalexin [From Keflex] AdvReac Unverified 11/21/24 14:04 Home Medications Medication Instructions Recorded Confirmed Type aspirin 81 mg tablet,delayed 81 mg PO DAILY 05/22/20 11/21/24 History release benzonatate 200 mg capsule 200 mg PO TID PRN cough #30 caps 07/23/21 11/21/24 Rx inhalational spacing device #1 ea 07/31/21 11/21/24 Rx albuterol sulfate 90 mcg/actuation 2 puff inhalation .COMPLEX PRN 09/03/24 11/21/24 Rx aerosol inhaler shortness of breath or wheezing #8.5 grams clobetasol 0.05 % topical cream 1 applic topical BID PRN rash #60 09/03/24 11/21/24 Rx grams clopidogrel 75 mg tablet 75 mg PO DAILY #90 tabs 09/03/24 11/21/24 Rx losartan 100 mg tablet 100 mg PO DAILY #90 tabs 09/03/24 11/21/24 Rx metoprolol tartrate 25 mg tablet 12.5 mg (1/2 x 25 mg) PO BID #90 09/03/24 11/21/24 Rx tabs nitroglycerin 0.4 mg sublingual 0.4 mg sublingual .COMPLEX PRN 09/03/24 11/21/24 Rx tablet chest pain #30 tabs rosuvastatin 20 mg tablet 20 mg PO DAILY #90 tabs 09/03/24 11/21/24 Rx empagliflozin 10 mg tablet 10 mg PO DAILY #30 tabs 11/21/24 11/21/24 Rx (Jardiance) Past Med/Surg History Problem List (Updated 01/21/25 @ 04:03 by Manuel Link MD) Myalgia Hypoxia (Acute) Elevated troponin I level (Acute) Fatigue (Acute) COVID-19 virus infection (Acute) Generalized weakness (Acute) Eustachian tube obstruction Pressure sensation in both ears Sensorineural hearing loss (SNHL) of both ears Positive BLANCA (antinuclear antibody) Proteinuria Acute kidney injury CKD (chronic kidney disease) stage 4, GFR 15-29 ml/min Fracture of fifth metacarpal bone of right hand (11/03/23) From a fall-saw orthopedics Fracture of fourth metacarpal bone of right hand (11/03/23) From a fall-saw orthopedics Fracture of third metacarpal bone of right hand (11/03/23) From a fall-saw orthopedics Right hand fracture (11/03/23) From a fall-saw orthopedics Dysmetabolic syndrome X Xerosis of skin Vitamin D deficiency, unspecified Ptosis of eyelid Prediabetes Postmenopausal disorder Old myocardial infarct Left carotid bruit Insomnia Hypomagnesemia Hypertension Hypercholesterolemia Generalized osteoarthritis of multiple sites Former smoker Arteriosclerosis of coronary artery Arteriosclerosis of carotid artery Medical History History of disorder of carotid artery Occlusion resulting in stroke History of hip fracture (~12/20/12) right acetabulum History of stroke due to occlusion or stenosis of lt. middle cerebral artery Retinal hemorrhage, left eye Presence of stent in artery Surgical History S/P carotid endarterectomy History of repair of rotator cuff Family History Father Lung cancer Mother Ovarian cancer Grandmother Myocardial infarction Heart disease Denies family history of Prostate cancer Breast cancer Colorectal cancer Social History Smoking Status: Current every day smoker Tobacco Type: Cigarettes Age Started Using Tobacco: 12; Age Quit Using Tobacco: 50; packs per day: 1; Cigarettes Per Day: 1 PPD smoker; Second Hand Exposure: Yes; Do You Dip or Chew Tobacco: No; Hx Alcohol Use: Yes Alcohol type: wine Alcohol Intake Frequency: Monthly or Less Hx Substance Use: No Preferred Language: Gabonese Communication Ability: Effective Visual Impairment: No Limitations Hearing Ability: Normal Peoplesoft Administrator Required: No Beliefs That Will Affect Care: None marital status: Current Living Situation: Alone Current Living Situation Comment: Lives alone current occupational status: employed and retired current occupation: [employer] How many Children do You have: 3 Other Information That Helps Us Care for You: No Feels Safe at Home: Yes Safety Concerns: Feels Safe At This Time Childhood Exposure to Second-Hand Smoke: Yes Diet: regular caffeine: Yes during the past year weight has: remained stable Dental Care, Regularly: No Physical Activity Frequency: Daily Seatbelt Use: always Sunscreen Use: No Assistive Devices: Glasses Review of Systems Review of Systems: The patient denies chest pain, palpitations, lower extremity swelling, sore throat, fevers, chills, sweats, nausea, vomiting, diarrhea , constipation, abdominal pain, pelvic pain, blood in urine or stool, dysuria, urinary frequency or urgency loss of consciousness, rash, abnormal bruising or bleeding, focal weakness, numbness or tingling in arms or legs, or night sweats. The review of systems is otherwise negative other than for that already noted above, and at least 10 systems have been reviewed. Physical Exam Physical Exam: The patient is awake, alert and oriented 3, well developed and well nourished, normocephalic and atraumatic, lying in bed and in no acute distress. HEENT--PERRL, EOMI, mucous membranes and oropharynx mildly dry. Neck--supple. No JVD. No bruits. Thyroid normal, trachea midline, no adenopathy. Heart--normal S1 and S2. No murmurs, rubs or gallops. Lungs--clear bilaterally, no respiratory distress, no accessory muscle use. Abdomen--normal bowel sounds and soft. Nontender. Nondistended, no hernias or masses, no organomegaly. Extremities--no cyanosis or clubbing. No edema. There are good distal pulses b/l. Dermatologic--normal skin turgor, normal color, no abnormal lymph nodes, no rash. Neurologic--cranial nerves II through XII grossly intact. Rheumatologic--normal range of motion. Psychiatric--normal affect. Results & Data Results & Data Vital Signs (Past 12 Hours) Vital Signs Temp Pulse Pulse Resp BP BP Pulse Ox 01/20/25 21:00 62 16 170/83 H 96 01/20/25 20:38 63 01/20/25 19:00 64 16 163/87 H 93 01/20/25 17:33 65 16 170/80 H 95 01/20/25 17:00 58 L 01/20/25 15:55 58 L 16 159/75 H 92 01/20/25 15:38 36.7 C 65 18 140/62 98 O2 Del Method O2 Flow Rate 01/20/25 21:00 Nasal Cannula 2 01/20/25 20:38 01/20/25 19:00 Room Air 01/20/25 17:33 Room Air 01/20/25 17:00 01/20/25 15:55 01/20/25 15:38 Room Air Laboratory Results Laboratory Results WBC 4.54 K/ul (4.8-10.8) L 01/20/25 16:07 RBC 3.90 M/uL (4.20-5.40) L 01/20/25 16:07 Hgb 11.1 g/dl (12.0-16.0) L 01/20/25 16:07 Hct 35.2 % (37.0-47.0) L 01/20/25 16:07 MCV 90.3 fL (80.0-100.0) 01/20/25 16:07 MCH 28.5 pg (25.0-34.0) 01/20/25 16:07 MCHC 31.5 g/dL (32.0-36.0) L 01/20/25 16:07 RDW Std Deviation 44.0 fL (36.4-46.3) 01/20/25 16:07 RDW Coeff of Yoselin 13.3 % (11.5-14.5) 01/20/25 16:07 Plt Count 221 K/uL (130-400) 01/20/25 16:07 MPV 9.4 fL (9.4-12.4) 01/20/25 16:07 Immature Gran % (Auto) 0.2 % 01/20/25 16:07 Neut % (Auto) 68.5 % 01/20/25 16:07 Lymph % (Auto) 14.5 % 01/20/25 16:07 [place] % (Auto) 16.1 % 01/20/25 16:07 Eos % (Auto) 0.0 % 01/20/25 16:07 Baso % (Auto) 0.7 % 01/20/25 16:07 Neut # (Auto) 3.11 K/uL (1.40-6.50) 01/20/25 16:07 Lymph # (Auto) 0.66 K/uL (1.20-3.40) L 01/20/25 16:07 [place] # (Auto) 0.73 K/uL (0.11-0.59) H 01/20/25 16:07 Eos # (Auto) 0.00 K/uL (0.00-0.50) 01/20/25 16:07 Baso # (Auto) 0.03 K/uL (0.00-0.20) 01/20/25 16:07 Immature Gran # (Auto) 0.01 K/uL (0.01-0.20) 01/20/25 16:07 PT 10.8 Seconds (9.0-12.0) 01/20/25 16:07 INR 1.0 (0.9-1.1) 01/20/25 16:07 APTT 28 Seconds (21-31) 01/20/25 16:07 PTT Ratio 1.0 01/20/25 16:07 Sodium 138 mmol/L (136-145) 01/20/25 16:07 Potassium 4.5 mmol/L (3.5-5.1) 01/20/25 16:07 Chloride 107 mmol/L (98-107) 01/20/25 16:07 Carbon Dioxide 24 mmol/L (21-32) 01/20/25 16:07 Anion Gap 7 (3-11) 01/20/25 16:07 BUN 22 mg/dl (6-23) 01/20/25 16:07 Creatinine 2.04 mg/dl (0.6-1.2) H 01/20/25 16:07 Est Cr Clr Drug Dosing 27.1 ml/min 01/20/25 16:07 eGFR 25.92 01/20/25 16:07 BUN/Creatinine Ratio 10.8 (10-20) 01/20/25 16:07 Glucose 90 mg/dl (70-99(Fasting)) 01/20/25 16:07 POC Glucose 102 mg/dl (70-99) H 01/20/25 15:53 Calcium 8.9 mg/dl (8.6-10.3) 01/20/25 16:07 Magnesium 1.9 mg/dl (1.7-2.4) 01/20/25 16:07 Total Bilirubin 1.2 mg/dl (0.2-1.0) H 01/20/25 16:07 AST 23 U/L (13-39) 01/20/25 16:07 ALT 16 U/L (7-52) 01/20/25 16:07 Alkaline Phosphatase 83 U/L (34-104) 01/20/25 16:07 Troponin I High Sens 16.9 pg/ml (0-14) H 01/20/25 16:07 Total Protein 6.2 gm/dl (6.0-8.3) 01/20/25 16:07 Albumin 3.7 gm/dl (3.4-5.0) 01/20/25 16:07 Globulin 2.5 gm/dl (2.5-4.0) 01/20/25 16:07 Albumin/Globulin Ratio 1.5 (0.9-2) 01/20/25 16:07 Urine Color Yellow 01/20/25 23:40 Urine Appearance Clear (Clear) 01/20/25 23:40 Urine pH 5.5 (4.5-7.5) 01/20/25 23:40 Ur Specific [place] 1.036 (1.000-1.030) H 01/20/25 23:40 Urine Protein Trace (Negative) H 01/20/25 23:40 Urine Glucose (UA) 3+ (Negative) H 01/20/25 23:40 Urine Ketones Negative (Negative) 01/20/25 23:40 Urine Blood 2+ (Negative) H 01/20/25 23:40 Urine Nitrite Negative (Negative) 01/20/25 23:40 Urine Bilirubin Negative (Negative) 01/20/25 23:40 Urine Urobilinogen Negative (Negative) 01/20/25 23:40 Ur Leukocyte Esterase Negative (Negative) 01/20/25 23:40 Urine WBC (Auto) 0-5 /hpf (0-5) 01/20/25 23:40 Urine RBC (Auto) 11-20 /hpf (0-2) H 01/20/25 23:40 U Hyaline Cast (Auto) 0-2 /lpf (0-2) 01/20/25 23:40 U Epithel Cells (Auto) 0-2 /hpf (0-2) 01/20/25 23:40 Urine Bacteria (Auto) None Seen (None Seen) 01/20/25 23:40 Urine Comment 01/20/25 23:40 SARS-CoV-2 (PCR) POSITIVE (Negative) A 01/20/25 16:10 Influenza Type A (PCR) Negative (Neg) 01/20/25 16:10 Influenza Type B (PCR) Negative (Neg) 01/20/25 16:10 RSV (RT-PCR) Negative (Neg) 01/20/25 16:10 Impressions Chest CTA 01/20/25 15:54 CT pulmonary angiogram with IV contrast History: Chest pain COMPARISON: None TECHNIQUE: CT angiography of the chest was performed without IV contrast followed by IV contrast, including 3D post processing CTA image reconstruction. Dose reduction techniques were achieved by using automatic exposure control and/or adjustment of mA and/or kV according to patient size and/or use of iterative reconstruction technique. FINDINGS: Diagnostic quality: Adequate There is no evidence for pulmonary embolism. No aortic dissection or aneurysm. The heart is not enlarged. Heavy coronary calcification. There is no pericardial effusion. There are no abnormally enlarged hilar or mediastinal lymph nodes. The central tracheobronchial tree is clear. The lungs are clear. There is no pleural effusion. Limited visualized upper abdomen. No destructive osseous changes are seen. IMPRESSION: Normal CTA of the chest. No aortic aneurysm or dissection. No evidence for pulmonary embolism. Electronically signed by Geovany Leroy 01-20-2025 7:[address] 01/20/25 15:54 CT head without contrast History: Numbness Comparison: None Technique: Using multidetector thin collimation helical acquisition technique, axial, coronal and sagittal CT images from the skull base to the vertex were obtained without intravenous contrast. Dose reduction techniques were achieved by using automatic exposure control and/or adjustment of mA and/or kV according to patient size and/or use of iterative reconstruction technique. Findings: No intracranial hemorrhage, mass-effect, or midline shift. The ventricles are proportionate to the cerebral sulci. The varghese to white matter differentiation of the cerebral hemispheres is preserved. The basal cisterns are patent. Chronic lacunar infarct in the left richards radiata. The visualized paranasal sinuses are clear. Mastoid air cells are clear. Impression: No acute intracranial pathology. Electronically signed by Geovany Leroy 01-20-2025 7:59 PM Head CTA 01/20/25 15:[address] without contrast CT angiogram of the neck CT angiogram of the brain with contrast Provided History: Neuro deficit Comparison: None Technique: HEAD CT: Using multidetector thin collimation helical acquisition technique, axial, coronal and sagittal CT images from the skull base to the vertex were obtained without intravenous contrast. HEAD and NECK CTA: During rapid bolus intravenous injection of nonionic contrast material, axial images were obtained using thin collimation multidetector helical technique from the base of the neck through the of vertex of the head. This CT angiogram data was reconstructed at thin intervals with mild overlap. 3D reconstructions were obtained. The axial source images, multiplanar reformations, 3D reconstructions in both maximum intensity projection display and volume rendered models were reviewed. Dose reduction techniques were achieved by using automatic exposure control and/or adjustment of mA and/or kV according to patient size and/or use of iterative reconstruction technique. Findings: Head CT: There is no intracranial hemorrhage, mass effect, or midline shift. Varghese/white matter differentiation in both cerebral hemispheres is preserved. Ventricles are proportionate to the cerebral sulci. Small chronic lacunar infarct in the left richards radiata. Head CTA demonstrates no aneurysm or stenosis of the major intracranial arteries. Neck CTA demonstrates no stenosis of the major cervical arteries. A right ICA stent appears patent. The origins of the great vessels from the aortic arch are patent. No mass is noted within the visualized portions of the cervical soft tissues or lung apices. Impression: 1. Head CTA demonstrates no aneurysm or stenosis of the major intracranial arteries, 2. Neck CTA demonstrates no stenosis of the major cervical arteries. Patent right ICA stent. 3. No intracranial hemorrhage on the noncontrast head CT. Electronically signed by Geovany Leroy 01-20-2025 7:53 PM Neck CTA 01/20/25 15:[address] without contrast CT angiogram of the neck CT angiogram of the brain with contrast Provided History: Neuro deficit Comparison: None Technique: HEAD CT: Using multidetector thin collimation helical acquisition technique, axial, coronal and sagittal CT images from the skull base to the vertex were obtained without intravenous contrast. HEAD and NECK CTA: During rapid bolus intravenous injection of nonionic contrast material, axial images were obtained using thin collimation multidetector helical technique from the base of the neck through the of vertex of the head. This CT angiogram data was reconstructed at thin intervals with mild overlap. 3D reconstructions were obtained. The axial source images, multiplanar reformations, 3D reconstructions in both maximum intensity projection display and volume rendered models were reviewed. Dose reduction techniques were achieved by using automatic exposure control and/or adjustment of mA and/or kV according to patient size and/or use of iterative reconstruction technique. Findings: Head CT: There is no intracranial hemorrhage, mass effect, or midline shift. Varghese/white matter differentiation in both cerebral hemispheres is preserved. Ventricles are proportionate to the cerebral sulci. Small chronic lacunar infarct in the left richards radiata. Head CTA demonstrates no aneurysm or stenosis of the major intracranial arteries. Neck CTA demonstrates no stenosis of the major cervical arteries. A right ICA stent appears patent. The origins of the great vessels from the aortic arch are patent. No mass is noted within the visualized portions of the cervical soft tissues or lung apices. Impression: 1. Head CTA demonstrates no aneurysm or stenosis of the major intracranial arteries, 2. Neck CTA demonstrates no stenosis of the major cervical arteries. Patent right ICA stent. 3. No intracranial hemorrhage on the noncontrast head CT. Electronically signed by Geovany Leroy 01-20-2025 7:53 PM Code Status & VTE Plan Code Status Full code VTE Prophylaxis Plan VTE Prophylaxis will be ordered: Yes PG Care Time/CCT Total # of Minutes Spent Total Time Spent with Patient: Total time spent is greater than 50% in coordination of care (as documented) at patient's floor/unit and/or counseling patient: Coding Level of Care Code 60494 INT INP/OBS CARE 3/75MIN Diagnoses COVID-19 virus infection U07.1 Fatigue R53.83 Generalized weakness R53.1 Myalgia M79.10
[2025-01-20] MEDS ORDERED: NITROGLYCERIN SL 0.4 MG/TAB TAB SL PRN (23:21)
[2025-01-20] MEDS ORDERED: ONDANSETRON INJ 2 MG/ML 2 ML VIAL IV PRN (23:21)
[2025-01-20] MEDS ORDERED: CLOBETASOL PROPIONATE 0.05% CREAM 15 GM TUBE TOP PRN (23:21)
[2025-01-20] MEDS: dexAMETHasone 10 MG in SYRINGE 0 ML IV ONE (23:24)
[2025-01-20] MEDS: REMDESIVIR 200 MG in SODIUM CHLORIDE 0.9% 210 ML IV STA (23:25)
[2025-01-20] MEDS: SODIUM CHLORIDE 0.9% 1,000 ML IV SCH (23:25)
[2025-01-21 00:13] LABS: Appearance Urine Clear (Clear); Bacteria Urine Automated None Seen (None Seen); Cast Urine Automated 0-2 /lpf (0-2); Epithelial Cell Urine Auto 0-2 /hpf (0-2); Glucose Urine UA 3+ (Negative); WBC Urine Automated 0-5 /hpf (0-5)
[2025-01-21] MEDS: ACETAMINOPHEN 325 MG TAB PO PRN (01:24)
[2025-01-21] MEDS: BENZONATATE 100 MG CAPSULE PO PRN (01:24)
[2025-01-21] MEDS: CLOPIDOGREL BISULFATE 75 MG TAB PO SCH (07:33)
[2025-01-21] MEDS: ROSUVASTATIN CALCIUM 20 MG TAB PO SCH (07:33)
[2025-01-21] MEDS: ASPIRIN 81 MG ECTAB PO SCH (07:34)
[2025-01-21] MEDS: HEPARIN SOD 5,000 UNIT/0.5 ML VIAL SQ SCH (07:34)
[2025-01-21] MEDS: dexAMETHasone 6 MG in SYRINGE 0 ML IV SCH (07:35)
[2025-01-21 07:45] VITALS: RESP 16; TEMP 98.2; O2SAT 97
[2025-01-21] MEDS: LOSARTAN POTASSIUM 50 MG TAB PO SCH (08:12)
[2025-01-21] MEDS: METOPROLOL TARTRATE 25 MG TAB PO SCH (08:25)
[2025-01-21 08:37] LABS: Hematocrit (blood only) 38.2 % (37.0-47.0); Hemoglobin 11.9 g/dl (12.0-16.0); Mean Corpuscular Hemoglobin 28.3 pg (25.0-34.0); Mean Corpuscular Volume 91.0 fL (80.0-100.0); Platelet Count 219 K/uL (130-400); RDW Standard Deviation 43.6 fL (36.4-46.3); Red Blood Count 4.20 M/uL (4.20-5.40); White Blood Count 2.88 K/ul (4.8-10.8)
[2025-01-21 08:55] LABS: Immature Granulocytes # (auto) 0.03 K/uL (0.01-0.20); Immature Granulocytes % (auto) 1.0 %; Polychromasia 1+
[2025-01-21 09:01] LABS: Anion Gap 9.0 (3-11); Blood Urea Nitrogen 22.0 mg/dl (6-23); Calcium 8.8 mg/dl (8.6-10.3); Carbon Dioxide 22.0 mmol/L (21-32); Chloride 109.0 mmol/L (98-107); Cholesterol 130.0 mg/dl (0-200); Creatinine Clr Calc Pharmacy 29.8 ml/min; Glucose 140.0 mg/dl (70-99(Fasting)); HDL Cholesterol 54.0 mg/dl; Potassium 4.3 mmol/L (3.5-5.1); Sodium 140.0 mmol/L (136-145); Triglycerides 61.0 mg/dl (0-150)
[2025-01-21 09:22] VITALS: BP 141/60
[2025-01-21 11:12] LABS: Hemoglobin A1C 5.8 % (4.5-5.6)
--- NOTE | 2025-01-21 11:39 | XCELERA ---
[id number] [id number]
--- NOTE | 2025-01-21 13:38 | Electrocardiogram Report ---
Test Reason : Blood Pressure : */* mmHG Vent. Rate : 59 BPM Atrial Rate : 59 BPM P-R Int : 200 ms QRS Dur : 102 ms QT Int : 450 ms P-R-T Axes : -4 -22 -8 degrees QTcB Int : 445 ms Sinus bradycardia with Premature atrial complexes possible Inferior infarct , age undetermined Abnormal ECG When compared with ECG of 22-May-2020 22:01, Premature ventricular complexes are no longer Present ST no longer depressed in Inferior leads ST no longer depressed in Anterolateral leads Nonspecific T wave abnormality has replaced inverted T waves in Inferior leads T wave inversion no longer evident in Lateral leads QT has shortened Confirmed by Geovany Weaver ([id number]) on 01/21/2025 1:38:21 PM Referred By: Confirmed By: Geovany Weaver
[2025-01-21 15:37] VITALS: PULSE 49
--- NOTE | 2025-01-21 15:47 | Discharge Summary ---
Discharge Summary Date of Service January 21, 2025 Principal Dx & Hospital Course #1 = Principal Diagnosis (1) COVID-19 virus infection: (2) Fatigue: (3) Generalized weakness: (4) HFrEF (heart failure with reduced ejection fraction): Plan COVID-19 virus infection- The patient is a 69-year-old female with past medical history including eustachian tube dysfunction, SNHL bilaterally, positive BLANCA, CKD stage IV, dys metabolic syndrome X, vitamin D deficiency, postmenopausal disorder, history of MO, hypertension, HLD generalized osteoarthritis multiple sites, former smoker, and history of YESSY stent. She presented to the emergency department due to symptoms of progressive fatigue, generalized weakness, dyspnea on exertion, cough, and multiple muscle and joint pains. Inital eval showed Respiratory bio fire test was negative for flu and RSV, positive for COVID. CT scan of head was negative, CT angiography of head was negative, CTA of neck showed a patent YESSY stent, CT angiography chest was negative for PE. Admitted for concerns of TIA, but weakness and fatigue likely due to viral infection, no neuro deficits. Weaned to room air with dexamethasone and remdesivir. Patient feeling much better, ambulating in room without shortness of breath. Discharge to home today with prednisone, tessalon pearls and instructions to take OTC mucinex. HFrEF/history of MO/hypertension/history of stroke/patent YESSY stent- new reduced EF found on echo with hypokinetic inferoposterior wall with evidence of old infarct. Patient does have known hx of MO but does not report knowledged of reduced EF and no prior echos available for review. Denied CHILDERS or frequent LE swelling. Troponin has peaked at 46.5 and downtrending. Continue aspirin, Plavix, losartan, metoprolol tartrate and Jardiance (prescribed by nephrology). Defer additional GDMT to cardiology, will arrange outpatient follow up. Hyperlipidemia- Continue rosuvastatin Dispo: discharge to home, cardiology follow up Notes For Next Care Provider new diagnosis of HFrEF Admission HPI Per Admitting Provider The patient is a 69-year-old female with past medical history including eustachian tube dysfunction, SNHL bilaterally, positive BLANCA, CKD stage IV, multiple fractures of metacarpals on right hand 11-03-2023, dysmetabolic syndrome X, vitamin D deficiency, postmenopausal disorder, history of MO, hypertension, hypercholesterolemia, generalized osteoarthritis multiple sites, former smoker, and history of YESSY stent. She presented to the emergency department due to symptoms of progressive fatigue, generalized weakness, dyspnea on exertion, cough, and multiple muscle and joint pains. There was report of transient slurred speech, which had resolved relatively quickly. 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 She denies any recent travels. Workup in the emergency department included abnormal labs: Troponin 16.9, creatinine 2.04. Respiratory bio fire test was negative for flu and RSV, positive for COVID. CT scan of head was negative, CT angiography of head was negative, CTA of neck showed a patent YESSY stent, CT angiography chest was negative for PE. From the ED the patient received normal saline 1 L fluid bolus, and is referred for evaluation for admission to the [facility]. Discharge Exam General: NAD, VS as above Resp: normal respiratory effort, lungs diminshed in the bases CV: RRR, no murmur, Abd: normal bowel sounds, non tender, soft Extremities: Moves all extremities, no edema Neuro: A&O x3, Skin: intact, no lesions noted Discharge Plan Discharge Items Patient Disposition: Home - Self-Care Reason For Visit: COVID INFECTION Discharge Diagnosis: COVID, reduced EF Condition on Discharge: Fair Activity: Resume your previous activity Non-emergency contact: Primary Care Provider Call non-emergency contact if: you have any medication questions, your symptoms worsen, your pain is not controlled and your temperature is above 101 Follow-up/Referrals: Tobias Palacios MD [Physician] - (follow up within one month ) Ambreen Lira MD [Primary Care Provider] - (Follow up within one week ) Diet: Heart Healthy Addtl Attending Provider Instructions: Ms. Luu, Jonathan were hospitalized after having worsening fatigue and dehydration at home. This was found to be from COVID infection - you have done well and have been weaned off oxygen. You will be continued on a short course of steroids to help your lungs continue to heal. Continue to use your incentive spirometer at home over the next few days until you feel well - this helps to keep your whole lung open and prevent pneumonia. I have also sent in tessalon Pearls. For your congestion, you can also take over the counter Mucinex (guaifenesin) 600mg twice a day as needed. You were also found to have an elevated heart level enzyme, this has returned back to normal. Because of this we ordered an Echocardiogram (ultrasound of your heart) that showed a reduced EF at 45-50% and that the vase of your ventricle was not pumping as effectively. I do not have any old ultrasounds to be able to compare it to. As we discussed this is a sign of heart failure- you will need to follow up with Dr. Palacios for further medication adjustments. Also watch your salt intake, trying to limit to 2g per day. I have attached handouts below about heart failure and things to look out for. Activity: You can do normal everyday activities as your body allows. Take rest breaks if you feel tired. Do not overexert. Stop activity if you have pain, shortness of breath or feel dizzy. Follow-up appointments: Make an appointment with your primary care physician within one week of discharge. A copy of this summary will be sent to them. Every time you see your primary care physician, or any other doctor, bring your medication list, and a list of questions. CONTACT YOUR PRIMARY CARE PROVIDER if you experience any of the following: Shortness of breath or difficulty breathing Fevers or chills Feeling tired with normal activity or experiencing dizziness or fainting Difficulty following your treatment plan, or difficulty taking medications CALL 911 OR GO TO THE EMERGENCY DEPARTMENT if you experience any of the following: Severe abdominal pain or nausea/vomiting Severe chest pain, or chest pain that radiates (moves) to your jaw or arm Sudden, severe shortness of breath or difficulty breathing Thank you for allowing us to participate in your care. Pending Studies at Discharge: No Stand-Alone Forms: [facility], Smoking Cessation Medications and DC Order Prescriptions: New prednisone 20 mg tablet 40 mg PO DAILY 3 Days Qty: 6 0RF benzonatate 100 mg capsule 100 mg PO TID PRN (Reason: cough) Qty: 14 0RF Continued benzonatate 200 mg capsule 200 mg PO TID PRN (Reason: cough) Qty: 30 1RF (DME) inhalational spacing device Spacer See Rx Instructions .ROUTE .MEDSUPPLY Qty: 1 0RF Rx Instructions: As directed albuterol sulfate 90 mcg/actuation HFA aerosol inhaler 2 puff inhalation .COMPLEX PRN (Reason: shortness of breath or wheezing) Qty: 8.5 3RF Rx Instructions: 2 puff inhalation q4-6 hrs PRN; clobetasol 0.05 % cream 1 applic topical BID PRN (Reason: rash) Qty: 60 0RF clopidogrel 75 mg tablet 75 mg PO DAILY Qty: 90 3RF Rx Instructions: Take 1 tablet by mouth once daily losartan 100 mg tablet 100 mg PO DAILY Qty: 90 3RF metoprolol tartrate 25 mg tablet 12.5 mg PO BID Qty: 90 3RF Rx Instructions: TAKE 1/2 (ONE-HALF) TABLET BY MOUTH TWICE DAILY nitroglycerin 0.4 mg tablet, sublingual 0.4 mg SL .COMPLEX PRN (Reason: chest pain) Qty: 30 5RF Rx Instructions: 0.4 mg SL Q5M FOR UP TO 3 DOSES PRN; rosuvastatin 20 mg tablet 20 mg PO DAILY Qty: 90 3RF Jardiance 10 mg tablet 10 mg PO DAILY Qty: 30 2RF aspirin 81 mg Tablet,Delayed Release (Dr/Ec) 81 mg PO DAILY Discharge Orders: Discharge Order (Routine); Ordered 01/21/25 Ordered By: Imelda Portillo/Other Patient Handouts: What Is Heart Failure, Heart Failure: Tracking Your Weight, Heart Failure Make Changes Diet, Heart Failure Dc, What is Ejection Fraction? Admission Data Admit Date/Time: 01/20/25 22:03 Attending Provider: Mannie Toro Admit Provider: Manuel Link Primary Care Provider: Ambreen Lira Other Providers: Manuel Link Other Interventions: Discharge Summary Assessment (RN) Last Done: 01/21/25 15:36 Hospital Stay Data Consultations 01/20/25 20:37 ED Decision to Admit Stat Diagnostic Imagining Performed Chest CTA 01/20/25 15:54 CT pulmonary angiogram with IV contrast History: Chest pain COMPARISON: None TECHNIQUE: CT angiography of the chest was performed without IV contrast followed by IV contrast, including 3D post processing CTA image reconstruction. Dose reduction techniques were achieved by using automatic exposure control and/or adjustment of mA and/or kV according to patient size and/or use of iterative reconstruction technique. FINDINGS: Diagnostic quality: Adequate There is no evidence for pulmonary embolism. No aortic dissection or aneurysm. The heart is not enlarged. Heavy coronary calcification. There is no pericardial effusion. There are no abnormally enlarged hilar or mediastinal lymph nodes. The central tracheobronchial tree is clear. The lungs are clear. There is no pleural effusion. Limited visualized upper abdomen. No destructive osseous changes are seen. IMPRESSION: Normal CTA of the chest. No aortic aneurysm or dissection. No evidence for pulmonary embolism. Electronically signed by Geovany Leroy 01-20-2025 7:[address] 01/20/25 15:54 CT head without contrast History: Numbness Comparison: None Technique: Using multidetector thin collimation helical acquisition technique, axial, coronal and sagittal CT images from the skull base to the vertex were obtained without intravenous contrast. Dose reduction techniques were achieved by using automatic exposure control and/or adjustment of mA and/or kV according to patient size and/or use of iterative reconstruction technique. Findings: No intracranial hemorrhage, mass-effect, or midline shift. The ventricles are proportionate to the cerebral sulci. The varghese to white matter differentiation of the cerebral hemispheres is preserved. The basal cisterns are patent. Chronic lacunar infarct in the left richards radiata. The visualized paranasal sinuses are clear. Mastoid air cells are clear. Impression: No acute intracranial pathology. Electronically signed by Geovany Leroy 01-20-2025 7:59 PM Head CTA 01/20/25 15:[address] without contrast CT angiogram of the neck CT angiogram of the brain with contrast Provided History: Neuro deficit Comparison: None Technique: HEAD CT: Using multidetector thin collimation helical acquisition technique, axial, coronal and sagittal CT images from the skull base to the vertex were obtained without intravenous contrast. HEAD and NECK CTA: During rapid bolus intravenous injection of nonionic contrast material, axial images were obtained using thin collimation multidetector helical technique from the base of the neck through the of vertex of the head. This CT angiogram data was reconstructed at thin intervals with mild overlap. 3D reconstructions were obtained. The axial source images, multiplanar reformations, 3D reconstructions in both maximum intensity projection display and volume rendered models were reviewed. Dose reduction techniques were achieved by using automatic exposure control and/or adjustment of mA and/or kV according to patient size and/or use of iterative reconstruction technique. Findings: Head CT: There is no intracranial hemorrhage, mass effect, or midline shift. Varghese/white matter differentiation in both cerebral hemispheres is preserved. Ventricles are proportionate to the cerebral sulci. Small chronic lacunar infarct in the left richards radiata. Head CTA demonstrates no aneurysm or stenosis of the major intracranial arteries. Neck CTA demonstrates no stenosis of the major cervical arteries. A right ICA stent appears patent. The origins of the great vessels from the aortic arch are patent. No mass is noted within the visualized portions of the cervical soft tissues or lung apices. Impression: 1. Head CTA demonstrates no aneurysm or stenosis of the major intracranial arteries, 2. Neck CTA demonstrates no stenosis of the major cervical arteries. Patent right ICA stent. 3. No intracranial hemorrhage on the noncontrast head CT. Electronically signed by Geovany Leroy 01-20-2025 7:53 PM Neck CTA 01/20/25 15:[address] without contrast CT angiogram of the neck CT angiogram of the brain with contrast Provided History: Neuro deficit Comparison: None Technique: HEAD CT: Using multidetector thin collimation helical acquisition technique, axial, coronal and sagittal CT images from the skull base to the vertex were obtained without intravenous contrast. HEAD and NECK CTA: During rapid bolus intravenous injection of nonionic contrast material, axial images were obtained using thin collimation multidetector helical technique from the base of the neck through the of vertex of the head. This CT angiogram data was reconstructed at thin intervals with mild overlap. 3D reconstructions were obtained. The axial source images, multiplanar reformations, 3D reconstructions in both maximum intensity projection display and volume rendered models were reviewed. Dose reduction techniques were achieved by using automatic exposure control and/or adjustment of mA and/or kV according to patient size and/or use of iterative reconstruction technique. Findings: Head CT: There is no intracranial hemorrhage, mass effect, or midline shift. Varghese/white matter differentiation in both cerebral hemispheres is preserved. Ventricles are proportionate to the cerebral sulci. Small chronic lacunar infarct in the left richards radiata. Head CTA demonstrates no aneurysm or stenosis of the major intracranial arteries. Neck CTA demonstrates no stenosis of the major cervical arteries. A right ICA stent appears patent. The origins of the great vessels from the aortic arch are patent. No mass is noted within the visualized portions of the cervical soft tissues or lung apices. Impression: 1. Head CTA demonstrates no aneurysm or stenosis of the major intracranial arteries, 2. Neck CTA demonstrates no stenosis of the major cervical arteries. Patent right ICA stent. 3. No intracranial hemorrhage on the noncontrast head CT. Electronically signed by Geovany Leroy 01-20-2025 7:53 PM Pending Results Patient Have Any Pending Studies at Discharge: No Discharge Instructions Given to Patient (Per Discharging Provider) Ms. Luu, Jonathan were hospitalized after having worsening fatigue and dehydration at home. This was found to be from COVID infection - you have done well and have been weaned off oxygen. You will be continued on a short course of steroids to help your lungs continue to heal. Continue to use your incentive spirometer at home over the next few days until you feel well - this helps to keep your whole lung open and prevent pneumonia. I have also sent in tessalon Pearls. For your congestion, you can also take over the counter Mucinex (guaifenesin) 600mg twice a day as needed. You were also found to have an elevated heart level enzyme, this has returned back to normal. Because of this we ordered an Echocardiogram (ultrasound of your heart) that showed a reduced EF at 45-50% and that the vase of your ventricle was not pumping as effectively. I do not have any old ultrasounds to be able to compare it to. As we discussed this is a sign of heart failure- you will need to follow up with Dr. Palacios for further medication adjustments. Also watch your salt intake, trying to limit to 2g per day. I have attached handouts below about heart failure and things to look out for. Activity: You can do normal everyday activities as your body allows. Take rest breaks if you feel tired. Do not overexert. Stop activity if you have pain, shortness of breath or feel dizzy. Follow-up appointments: Make an appointment with your primary care physician within one week of discharge. A copy of this summary will be sent to them. Every time you see your primary care physician, or any other doctor, bring your medication list, and a list of questions. CONTACT YOUR PRIMARY CARE PROVIDER if you experience any of the following: Shortness of breath or difficulty breathing Fevers or chills Feeling tired with normal activity or experiencing dizziness or fainting Difficulty following your treatment plan, or difficulty taking medications CALL 911 OR GO TO THE EMERGENCY DEPARTMENT if you experience any of the following: Severe abdominal pain or nausea/vomiting Severe chest pain, or chest pain that radiates (moves) to your jaw or arm Sudden, severe shortness of breath or difficulty breathing Thank you for allowing us to participate in your care. Total Time Total Time Spent Total Time Spent (In Minutes): Time spent day of discharge 40 minutes including direct patient care, medication reconciliation, documentation, review of labs and images, and coordination of care. Coding Level of Care Code 77947 INP/OBS DISCH >30 MIN Diagnoses COVID-19 virus infection U07.1 Fatigue R53.83 Generalized weakness R53.1 HFrEF (heart failure with reduced ejection fraction) I50.20
[2025-01-21] MEDS ORDERED: REMDESIVIR 100 MG in SODIUM CHLORIDE 0.9% 230 ML IV SCH (21:00)
== END 2025-01-21 17:00 | disposition home or self-care (01) | DRG 178 ==
LOC: ED 15:32 → SUATTDRO 22:03 → 2E 22:03